=== PATIENT | male | born 1995 | race Caucasian/White ===

== ENCOUNTER 2016-06-27 14:09 | Emergency (ER) | payer BC ==
--- NOTE | 2016-06-27 14:32 | ED ---
General Adult HPI - General Chief complaint: Wound/Laceration Stated complaint: Fall/Chin Lac Time Seen by Provider: 06/27/16 14:18 Source: patient, RN notes reviewed Mode of arrival: ambulatory Limitations: no limitations - History of Present Illness Initial comments: This is a 21-year-old male presents with a laceration to the chin. Patient states this happened today as he was walking and slipped on ice. Patient thinks he hit his chin on a patch of ice as well. Patient denies any loss of consciousness, nausea/vomiting, neck pain or back pain or headache. Patient denies any pain with biting down or loose teeth. Patient is not on any medication and denies any medical problems. Patient states he is up-to-date on his tetanus shot. Patient is able to walk. Patient denies any recent fever, chills, shortness breath, chest pain, abdominal pain, diarrhea, numbness, tingling, hematuria, or visual changes, or any other complaints. - Related Data Home Medications Medication Instructions Recorded Confirmed No Known Home Medications [No 06/27/16 06/27/16 Known Home Medications] Allergies Allergy/AdvReac Type Severity Reaction Status Date / Time No Known Allergies Allergy Verified 06/27/16 14:15 Review of Systems ROS Statement: Those systems with pertinent positive or pertinent negative responses have been documented in the HPI. ROS Other: All systems not noted in ROS Statement are negative. Past Medical History Past Medical History: No Reported History History of Any Multi-Drug Resistant Organisms: None Reported Additional Past Surgical History / Comment(s): wisdom teeth removal Past Psychological History: No Psychological Hx Reported Smoking Status: Never smoker Past Alcohol Use History: None Reported Past Drug Use History: None Reported General Exam - General Exam Comments Initial Comments: General: The patient is awake and alert, in no distress, and does not appear acutely ill. Eye: Pupils are equal, round and reactive to light, extra-ocular movements are intact. No nystagmus. There is normal conjunctiva bilaterally. No signs of icterus. Mouth and throat: Patient is able to bite down with no pain. There is no evidence of loose teeth. There are moist mucous membranes and no oral lesions. Neck: The neck is supple, there is no tenderness or JVD. Cardiovascular: There is a regular rate and rhythm. No murmur, rub or gallop is appreciated. Respiratory: Lungs are clear to auscultation, respirations are non-labored, breath sounds are equal. No wheezes, stridor, rales, or rhonchi. Musculoskeletal: Normal ROM, no tenderness. Strength 5/5. Sensation intact. Radial pulses equal bilaterally 2+. Neurological: A&O x 3. CN II-XII intact, There are no obvious motor or sensory deficits. Coordination appears grossly intact. Speech is normal. Skin: There is an approximately 2 cm laceration to the inferior chin. No swelling or ecchymosis. There is no active bleeding. Skin is warm and dry and no rashes or lesions are noted. Psychiatric: Cooperative, appropriate mood & affect, normal judgment. Limitations: no limitations Course Vital Signs 06/27/16 14:13 Temperature 98.0 F Pulse Rate 75 Respiratory 20 Rate Blood Pressure 126/71 O2 Sat by Pulse 99 Oximetry Procedures - Procedures Initial comment: The skin was anesthetized with 1% lidocaine. The laceration was then cleansed and irrigated with normal saline. The wound was inspected, and there was no evidence of injury to deep structures. No foreign body was noted in the wound. A total of 5 skin sutures were placed utilizing 5-0 Ethilon. Laceration is approx 2 cm. Medical Decision Making - Medical Decision Making This is a 21-year-old male presents laceration to the anterior chin. Patient states he fell and hit his chin. On physical exam there is an approximately 2 cm laceration to the inferior chin. No swelling or ecchymosis. There is no active bleeding. Patient is up-to-date on his tetanus shot. The skin was anesthetized with 1% lidocaine. The laceration was then cleansed and irrigated with normal saline. The wound was inspected, and there was no evidence of injury to deep structures. No foreign body was noted in the wound. A total of 5 skin sutures were placed utilizing 5-0 Ethilon. Laceration is approx 2 cm. Discussed suture removal in 5 days. Discussed signs and symptoms of infection. Discussed return parameters. Discussed suture care. Discussed over-the- counter Tylenol or Motrin as needed for any pain. Discussed that patient should follow up with PCP in one to 2 days or return to the [facility] for any worsening symptoms or for any further concerns. Patient was receptive to this plan and patient will be discharged home. Disposition Clinical Impression: Laceration Disposition: HOME SELF-CARE Condition: Good Instructions: Care For Your Stitches (ED), Laceration (ED) Additional Instructions: Please have sutures removed in 5 days. Please apply Neosporin as needed to the area. Please do not submerge the wound in water but rinsing and showering are okay. Please use medication as discussed. Please follow-up with family doctor in the next 2 days of symptoms have not improved. Please return to emergency room if the symptoms increase or worsen or for any other concerns. Referrals: Chester Mayo DO [Primary Care Provider] - 1-2 days Time of Disposition: 15:08
[2016-06-27 15:19] VITALS: BP 123/68; PULSE 70; RESP 18; TEMP 98.1
== END 2016-06-27 15:17 | disposition home or self-care (01) ==
LOC: EC 14:09
DX: S01.81XA Laceration without foreign body of other part of head, initial encounter (principal); W00.0XXA Fall on same level due to ice and snow, initial encounter
CPT/HCPCS: 12011; 99282